=== PATIENT | female | born 1965 | race Caucasian/White ===

== ENCOUNTER 2020-01-08 14:47 | Emergency (ER) | payer OTHER ==
[~2020-01-08] VITALS: Ht 160 cm; Wt 65.8 kg
[2020-01-08] MEDS ORDERED: NORVASC 2.5 MG2.5 M1 PO (15:46)
[2020-01-08] MEDS ORDERED: TRULICITY0.75 MG/0. SUBQ (15:47)
[2020-01-08] MEDS ORDERED: HYDROCHLOROTHIA25 M2 PO (15:47)
[2020-01-08] MEDS ORDERED: METFORMIN HCL500 M3 PO (15:47)
[2020-01-08] MEDS ORDERED: VALSARTAN40 MG PO (15:48)
[2020-01-08] MEDS ORDERED: PREDNISONE 20 M20 MG PO (15:55)
[2020-01-08] MEDS ORDERED: EPIPEN 2-P0.3 MG/0.3 IM (15:55)
[2020-01-08 16:21] VITALS: BP 150/59
== END 2020-01-08 16:26 | disposition home or self-care (01) ==
LOC: ER 14:47
DX: T78.2XXA Anaphylactic shock, unspecified, initial encounter (principal); I10 Essential (primary) hypertension; E11.9 Type 2 diabetes mellitus without complications; G43.909 Migraine, unspecified, not intractable, without status migrainosus; Z90.49 Acquired absence of other specified parts of digestive tract; Z86.73 Personal history of transient ischemic attack (TIA), and cerebral infarction without residual deficits; Z88.8 Allergy status to other drugs, medicaments and biological substances

== ENCOUNTER → 2020-01-17 | Outpatient (CLI) | payer OTHER ==
[~2020-01-17] MED LIST: EPIPEN 2-P0.3 MG/0.3 IM; HYDROCHLOROTHIA25 M2 PO; METFORMIN HCL500 M3 PO; NORVASC 2.5 MG2.5 M1 PO; PREDNISONE 20 M20 MG PO; TRULICITY0.75 MG/0. SUBQ; VALSARTAN40 MG PO
== END ==
LOC: CAT
DX: Z13.6 Encounter for screening for cardiovascular disorders (principal); E78.00 Pure hypercholesterolemia, unspecified; I25.10 Atherosclerotic heart disease of native coronary artery without angina pectoris

== ENCOUNTER → 2020-02-07 | Outpatient (CLI) | payer OTHER | LOC: SJCVCIMAG 01-29 16:06 | PROVIDERS: ATTEND Internal Medicine | DX: I10 Essential (primary) hypertension (principal); E11.9 Type 2 diabetes mellitus without complications; E78.5 Hyperlipidemia, unspecified; I25.10 Atherosclerotic heart disease of native coronary artery without angina pectoris; Z79.4 Long term (current) use of insulin ==